=== PATIENT | male | born 1965 | race Caucasian/White ===

== ENCOUNTER 2018-04-17 22:09 | Emergency (ER) | payer OTHER ==
[~2018-04-17] VITALS: Ht 180.3 cm; Wt 151.5 kg
[2018-04-17 22:38] LABS: HEMATOCRIT 43.1 % (38.0-50.0); HEMOGLOBIN 14.4 G/DL (12.5-16.6); MCH 28.2 PG (29.0-34.0); MCHC 33.4 G/DL (30.0-36.0); MCV 84.3 FL (86-99); PLATELET COUNT 294 K/uL (156-360); RBC DIS.WIDTH-CV 14.3 % (11.8-14.6); RBC DIS.WIDTH-SD 43.8 % (39-53); RED BLOOD COUNT 5.11 M/uL (4.00-5.50); WHITE BLOOD COUNT 11.1 K/uL (4.1-10.2)
[2018-04-17 22:47] LABS: CHLORIDE 105 mEq/L (99-109); POTASSIUM 3.8 mEq/L (3.7-5.4); SODIUM 139 mEq/L (136-147)
[2018-04-17 22:48] LABS: GLUCOSE 137 mg/dL (70-99)
[2018-04-17 22:52] LABS: GFR ESTIMATE (CALCULATED) > 59 mL/min/ (58.99-99999)
[2018-04-17 22:53] LABS: UREA NITROGEN (BUN) 15 mg/dL (9-23)
[2018-04-17 22:59] LABS: TROP-I INTERPRETATION NEGATIVE; TROPONIN-I < 0.01 ng/mL (0.0-0.30)
[2018-04-18 01:04] LABS: TROP-I INTERPRETATION NEGATIVE; TROPONIN-I < 0.01 ng/mL (0.0-0.30)
[2018-04-18 01:09] LABS: ALBUMIN 4.1 g/dL (3.2-4.8)
[2018-04-18 01:12] LABS: TOTAL PROTEIN 6.8 g/dL (6.4-8.3)
[2018-04-18 01:13] LABS: TOTAL BILIRUBIN 0.5 mg/dL (0.0-1.0)
[2018-04-18 01:14] LABS: ALKALINE PHOSPHATASE 77 IU/L (3-129)
[2018-04-18 01:17] LABS: AST (GOT) 26 IU/L (2-34); DIRECT BILIRUBIN 0.2 mg/dL (0.0-0.3)
[2018-04-18 01:18] LABS: ALT (GPT) 24 IU/L (3-49); LIPASE 14 U/L (1.0-51.0)
[2018-04-18 02:02] VITALS: BP 140/72
== END 2018-04-18 02:02 | disposition home or self-care (01) ==
LOC: EME 22:09
PROVIDERS: Emergency Medicine
DX: R07.89 Other chest pain (principal); R10.13 Epigastric pain; I44.0 Atrioventricular block, first degree; I45.4 Nonspecific intraventricular block; R94.31 Abnormal electrocardiogram [ECG] [EKG]; K80.20 Calculus of gallbladder without cholecystitis without obstruction; K76.0 Fatty (change of) liver, not elsewhere classified; E11.9 Type 2 diabetes mellitus without complications; Z79.899 Other long term (current) drug therapy; Z98.890 Other specified postprocedural states; Z88.0 Allergy status to penicillin
CPT/HCPCS: 71046; 76705; 80048; 80076; 83690; 84484; 85027; 93005; 99281; 99285